=== PATIENT | female | born 1965 ===

== ENCOUNTER → 2019-01-11 | Outpatient (CLI) | payer OTHER | LOC: COL.LAB 17:49 | DX: Z01.812 Encounter for preprocedural laboratory examination (principal); Z86.14 Personal history of Methicillin resistant Staphylococcus aureus infection ==

== ENCOUNTER 2019-04-13 21:33 | Emergency (ER) | payer OTHER ==
[~2019-04-13] VITALS: Ht 162.6 cm; Wt 140.9 kg
[2019-04-14 00:14] VITALS: BP 125/65; PULSE 77; TEMP 98.2
== END 2019-04-14 00:35 | disposition home or self-care (01) ==
LOC: COL.ER 21:33
DX: S73.004A Unspecified dislocation of right hip, initial encounter (principal); J44.9 Chronic obstructive pulmonary disease, unspecified; E66.9 Obesity, unspecified; I10 Essential (primary) hypertension; Z87.891 Personal history of nicotine dependence; X50.1XXA Overexertion from prolonged static or awkward postures, initial encounter
CPT/HCPCS: J2250; J2704; J3010; J7120; L1846